=== PATIENT | male | born 1965 | race Caucasian/White ===

== ENCOUNTER 2020-12-27 02:11 | Emergency (ER) | payer OTHER, SELFPAY ==
[2020-12-27] VITALS (10 sets, daily range): BP systolic 134–182; BP diastolic 93–99; PULSE 84–102; RESP 12–19; TEMP 36.3; O2SAT 98–100
--- NOTE | ~2020-12-27 | CT_ITS ---
EXAMINATION: CT brain wo con DATE: 12/27/2020 03:00 INDICATION: Headache. Hypertension. TECHNIQUE: Computed tomography (CT) of the head was performed without intravenous contrast. The mA wa s adjusted according to patient size. Iterative reconstruction technique was employed. Exam dose: 60 5.33 mGy-cm total exam DLP. COMPARISON: None FINDINGS: No intracranial mass lesion or hemorrhage or cerebrovascular accident is detected. No midli ne shift or mass effect. Normal ventricular size. No subdural or epidural hematoma. There is mild soft tissue thickening of the ethmoid septae. There is minimal mucoperiosteal thickenin g of the left frontal sinus. There is opacification of some inferior right mastoid air cells. No fracture of the cranial vault. IMPRESSION: No significant intracranial abnormality Reviewed, dictated and finalized at [facility] Reviewed, dictated and finalized at [facility]. [employer] MA[employer]GER
--- NOTE | ~2020-12-27 | XR_ITS ---
XR chest 1V DATE: 12/27/2020 02:52 INDICATION: Hypertension TECHNIQUE: AP chest COMPARISON: None FINDINGS: Normal heart size. No hilar or mediastinal enlargement. No pulmonary infiltrate or consolid ation, pleural effusion or pulmonary vascular congestion or pneumothorax. IMPRESSION: No active cardiopulmonary disease Reviewed, dictated and finalized at [facility]. THESIOLOGIST ASSISTANT CERTIFIED
--- NOTE | 2020-12-27 02:43 | ECG_ITS ---
Measurements Intervals [place] Rate: 83 P: 65 FL: 148 QRS: 30 QRSD: 97 T: 34 QT: 388 QTc: 456 Interpretive Statements SINUS RHYTHM NORMAL ECG Electronically Signed On 12-27-2020 8:11:16 DEAN by Jimbo Pratt D.O.
--- NOTE | 2020-12-27 03:07 | ED.GENADULT ---
HPI - General Adult General Chief complaint: Recheck/Abnormal Lab/Rx Stated complaint: elevated bp Time Seen by Provider: 12/27/20 02:36 History of Present Illness HPI narrative: Patient is a 55-year-old gentleman who presents the emergency department with chief complaint of hypertension. Patient reports he has history of hypertension reports that today he noticed that his blood pressures were running high and he felt somewhat shaky and dizzy. Patient states that he also felt a little nauseated today patient denies chest pain denies shortness of breath denies abdominal pain. Related Data Allergies Allergy/AdvReac Type Severity Reaction Status Date / Time NKDA Allergy Unknown Unknown Uncoded 02/20/20 13:56 Review of Systems Review of Systems: Narrative: A 10 system review of systems was completed on the patient and is negative except for what is stated in the HPI. Nursing and ancillary documentation was reviewed. [facility] Past Medical History Medical History (Updated 12/27/20 @ 04:19 by Lloyd Beltran MD) Ankle injury Hand injury (~08/2014) Surgical History Surgical History History of esophagogastroduodenoscopy (EGD) (~02/2011) Family History Family History Mother Depression Social History Social History Smoking status: Never smoker Alcohol intake: current Comments Patient also has past medical history for hypertension Exam Narrative: Exam Narrative: GENERAL: Well-appearing, well-nourished, and in no acute distress. HEAD: Normocephalic, atraumatic. EYES: PERRLA and EOMI. ENT: Nares clear, no rhinorrhea or epistaxis. Mucous membranes moist. NECK: Supple. CHEST: Clear to auscultation. No respiratory distress. HEART: Regular rate and rhythm. No murmur heard. Normal peripheral pulses. ABDOMEN: Soft, nontender, nondistended, normal active bowel sounds. EXTREMITIES: Normal range of motion. No edema. SKIN: Warm, dry, no rash. NEURO: No focal deficits. Alert and oriented x3. PSYCH: Normal mood and affect. Course Vital Signs Vital signs: Vital Signs Temperature 36.3 C L 12/27/20 02:16 Pulse Rate 102 H 12/27/20 02:16 Respiratory Rate 16 12/27/20 02:16 Blood Pressure 182/97 H 12/27/20 02:16 Pulse Oximetry 100 12/27/20 02:16 Temperature 36.3 C L 12/27/20 02:16 Pulse Rate 87 12/27/20 04:15 Respiratory Rate 12 12/27/20 04:15 Blood Pressure 134/94 H 12/27/20 04:00 Pulse Oximetry 98 12/27/20 04:15 Medical Decision Making Vital Signs Vital Signs: Vital Signs Temperature 36.3 C L 12/27/20 02:16 Pulse Rate 102 H 12/27/20 02:16 Respiratory Rate 16 12/27/20 02:16 Blood Pressure 182/97 H 12/27/20 02:16 Pulse Oximetry 100 12/27/20 02:16 Temperature 36.3 C L 12/27/20 02:16 Pulse Rate 87 12/27/20 04:15 Respiratory Rate 12 12/27/20 04:15 Blood Pressure 134/94 H 12/27/20 04:00 Pulse Oximetry 98 12/27/20 04:15 Lab Data Result diagrams: 12/27/20 03:19 12/27/20 03:19 Labs: Lab Results 12/27/20 12/27/20 Range/Units 03:19 03:19 WBC 5.5 (4.5-10.0) K/mm3 RBC 5.02 (4.6-6.20) M/mm3 Hgb 17.1 (14.0-18.0) g/dL Hct 47.5 (42.0-52.0) % MCV 94.6 (80-100) fl MCH 34.1 H (26-34) pg MCHC 36.0 (32-36) g/dl RDW 11.9 (11.5-14.5) % Plt Count 136 L (150-375) k/mm3 MPV 9.7 (7.4-10.4) fl Immature Gran % (Auto) 0.4 (0-0.5) % Neut % (Auto) 63.9 (45.5-73.1) % Lymph % (Auto) 20.0 (18.3-44.2) % [place] % (Auto) 12.8 H (2.6-8.5) % Eos % (Auto) 2.2 (0-4.4) % Baso % (Auto) 0.7 (0.2-1.2) % Lymph # (Auto) 1.10 (0.9-3.2) K/mm3 [place] # (Auto) 0.7 H (0.1-0.6) K/mm3 Eos # (Auto) 0.1 (0-0.3) K/mm3 Baso # (Auto) 0.0 (0.0-0.1) K/mm3 Abs Immat Gran (auto) 0.02 (0.00-0.031) K/mm
[2020-12-27] MEDS: ONDANSETRON INJ 4 MG/2 ML VIAL IV PUSH (03:23)
[2020-12-27 03:40] LABS: Basophils Percent Auto 0.7 % (0.2-1.2); Eosinophils Absolute Auto 0.1 K/mm3 (0-0.3); Eosinophils Percent Auto 2.2 % (0-4.4); Hematocrit 47.5 % (42.0-52.0); Hemoglobin 17.1 g/dL (14.0-18.0); Immature Granulocyte Absolute 0.02 K/mm3 (0.00-0.031); Immature Granulocyte Percent A 0.4 % (0-0.5); Immature Platelet Fraction Pct 4.2 % (0.9-11.2); Mean Corpuscular Hemoglobin 34.1 pg (26-34); Mean Corpuscular Volume 94.6 fl (80-100); Mean Platelet Volume 9.7 fl (7.4-10.4); Monocytes Absolute Auto 0.7 K/mm3 (0.1-0.6); Monocytes Percent Auto 12.8 % (2.6-8.5); Neutrophils Absolute Auto 3.5 K/mm3 (1.3-6.7); Neutrophils Percent Auto 63.9 % (45.5-73.1); Platelet Count Result 136 k/mm3 (150-375); Red Blood Count 5.02 M/mm3 (4.6-6.20); Red Cell Distribution Width 11.9 % (11.5-14.5); White Blood Count 5.5 K/mm3 (4.5-10.0)
[2020-12-27 03:41] LABS: Alanine Aminotransferase 85 U/L (4-50); Alkaline Phosphatase 58 U/L (38-126); Anion Gap 13 mmol/L (8-16); Aspartate Amino Transferase 63 U/L (17-59); Bilirubin,Total 1.4 mg/dL (0.2-1.3); Blood Urea Nitrogen 10 mg/dL (9-20); Calcium 9.7 mg/dL (8.4-10.2); Carbon Dioxide 25 mmol/L (22-30); Chloride 92 mmol/L (98-107); Estimated Glomerular Filt Rate > 60; Glucose 125 mg/dL (75-110); Potassium 4.4 mmol/L (3.4-5.0); Sodium 130 mmol/L (137-145)
[2020-12-27 03:53] LABS: Troponin I < 0.012 ng/mL (0.000-0.034)
--- NOTE | 2020-12-27 04:20 | PC.NURSE ---
pt ambulatory with even and steady gait.
== END 2020-12-27 04:30 | disposition home or self-care (01) ==
PROVIDERS: Emergency Provider Emergency Medicine; PCP Family Medicine
DX: I10 Essential (primary) hypertension (principal)
CPT/HCPCS: 36415; 70450; 71045; 80053; 84484; 85025; 85055; 93005; 96374; 99284; J2405